=== PATIENT | female | born 1965 | race Caucasian/White ===

== ENCOUNTER → 2019-10-28 19:03 | Outpatient (CLI) | payer OTHER, SELFPAY ==
--- NOTE | 2019-10-28 | DI.MRI.S_ITS ---
PROCEDURE: MR CERVICAL SPINE WO CON INDICATIONS: other symptoms and signs of musculoskeletal TECHNIQUE: Noncontrast sagittal T1 spin echo and T2 fast spin echo, sagittal STIR, foraminal oblique sagittal T2 fast spin echo, and axial gradient echo or T2 fast spin echo through the cervical spine. COMPARISON: None. FINDINGS: Image quality: Excellent. Alignment and Curvature: There is loss of normal cervical lordosis. Mild kyphosis at C3-C5 is present. Bone Marrow: Marrow demonstrates normal overall signal. Anterior fusion hardware at C5-C6 is present. Spinal Cord: Visualized spinal cord has normal size and signal. No cerebellar tonsillar herniation. Paraspinous Soft Tissues: No paravertebral masses. Prevertebral soft tissues are normal in thickness. C2-C3: Mild disc desiccation and diffuse disc bulge. No significant canal stenosis. Mild bilateral foraminal stenosis. C3-C4: Mild disc desiccation and diffuse disc bulge. Mild bilateral facet hypertrophy, left greater than right. Congenital canal stenosis. There is overall moderate canal stenosis. There is moderate left and mild right foraminal stenosis. C4-C5: Mild disc desiccation and diffuse disc bulge. Congenital canal stenosis. Moderate left and mild right facet and uncovertebral hypertrophy. Moderate canal stenosis. Severe left and mild right foraminal stenosis. Left C5 nerve root compression. C5-C6: Status post fusion. Mild bilateral facet and uncovertebral hypertrophy. No significant canal stenosis. Moderate bilateral foraminal stenosis. C6-C7: Mild disc height loss and desiccation. Moderate diffuse disc bulge. Moderate facet and uncovertebral hypertrophy bilaterally. Moderate canal stenosis. Severe bilateral foraminal stenosis with bilateral C7 nerve root compression. C7-T1: Normal appearance. IMPRESSION: 1. C5-C6 fusion, with no significant canal stenosis at the fused level. 2. Multilevel degenerative disc and facet disease, as well as uncovertebral hypertrophy. 3. Multilevel canal stenoses, worst at C3-C4, C4-C5 and C6-C7, where there are moderate canal stenoses. 4. Multilevel foraminal stenoses, worst at C4-C5 and C6-C7 where there is associated intraforaminal nerve root compression. Recommend correlation with clinical symptoms to ascertain relevance of these findings. Dictated by: Yesenia Chino M.D. on 10/29/2019 at 8:18 Approved by: Yesenia Chino M.D. on 10/29/2019 at 8:22
--- NOTE | 2019-10-28 | DI.MRI.S_ITS ---
PROCEDURE: MR LUMBAR SPINE WO CON INDICATIONS: other symptoms and signs of musculoskeletal TECHNIQUE: Noncontrast sagittal T1 spin echo and T2 fast echo, coronal T2, sagittal STIR, axial T1 and T2 fast spin echo through the lumbar spine. COMPARISON: None. FINDINGS: Image quality: Excellent. Alignment and Curvature: No plain films are available for comparison, for numbering purposes. Thus, for the purposes of this examination, 5 lumbar type vertebral bodies will be presumed, as denoted on the montage panel. This should be confirmed and correlated with plain films, prior to any lumbar spinal intervention. There is mild diffuse rightward curvature of the lumbar spine. There is mild grade 1 anterolisthesis of L3 on L4 and L4 on L5. Mild grade 1 retrolisthesis of L5 on S1. Bone Marrow: Marrow is of normal overall signal. No acute vertebral body compression fractures. Mild reactive signal within the endplates adjacent to the L3-L4, L4-L5, and L5-S1 intervertebral discs. Spinal Cord: Conus medullaris terminates at the upper L1 level. Visualized cord demonstrates normal signal and size. Paraspinous Soft Tissues: No paravertebral masses. L1-L2: Mild disc desiccation. Mild facet and ligamentum hypertrophy bilaterally. Mild canal stenosis. No foraminal stenosis. L2-L3: Mild facet and ligamentum flavum hypertrophy. No significant canal, nor foraminal stenosis. L3-L4: Mild disc height loss and desiccation. Mild diffuse disc bulge. Moderate facet and ligamentum flavum hypertrophy bilaterally. Periarticular cyst adjacent to the bilateral facet joints are present, measuring 6 mm on the right and 9 mm on the left, protruding into the posterior epidural space, and contributing significantly to canal stenosis at this level. There is severe canal stenosis. There is mild bilateral foraminal stenosis. L4-L5: Moderate disc height loss and desiccation. Mild diffuse disc bulge with superimposed broad-based central protrusion. Mild facet and ligamentum hypertrophy bilaterally. Mild canal stenosis. Mild bilateral foraminal stenosis. L5-S1: Moderate disc height loss and desiccation. Mild diffuse disc bulge with small superimposed broad-based right posterior lateral protrusion. Mild facet hypertrophy bilaterally. Mild canal stenosis. Moderate right and mild left foraminal stenosis. IMPRESSION: 1. Multilevel degenerative disc and facet disease, as well as ligamentum flavum hypertrophy and epidural lipomatosis. 2. Multilevel canal stenoses, worst at L3-L4 where there is severe canal stenosis, which is exacerbated by periarticular cysts arising from the bilateral facet joints. 3. Multilevel foraminal stenoses, worse at L5-S1 on the right where there is moderate foraminal stenosis. 4. 5 lumbar type vertebral bodies were presumed for the current report. Plain films of the lumbar spine are recommended for confirmation, prior to any lumbar spinal intervention. Dictated by: Yesenia Chino M.D. on 10/29/2019 at 8:22 Approved by: Yesenia Chino M.D. on 10/29/2019 at 8:26
== END ==
PROVIDERS: Referring Provider Physician Assistant; Visit Provider Physician Assistant
DX: R29.898 Other symptoms and signs involving the musculoskeletal system (principal); M50.31 Other cervical disc degeneration, high cervical region; M48.02 Spinal stenosis, cervical region; M51.36 Other intervertebral disc degeneration, lumbar region; M51.37 Other intervertebral disc degeneration, lumbosacral region; M48.061 Spinal stenosis, lumbar region without neurogenic claudication; M48.07 Spinal stenosis, lumbosacral region; E88.2 Lipomatosis, not elsewhere classified; Z98.1 Arthrodesis status
CPT/HCPCS: 72141; 72148

== ENCOUNTER → 2019-11-07 14:49 | Outpatient (CLI) | payer OTHER, SELFPAY ==
[2019-11-07 15:48] LABS: Add Manual Diff / Slide Review NO; Basophils Absolute Auto 0 /uL (0-100); Basophils Percent Auto 0.7 % (0-2); Eosinophils Absolute Auto 300 /uL (0-450); Hematocrit 42.7 % (36-46); Hemoglobin 14.5 g/dL (12.0-16.0); Lymphocytes Absolute Auto 1300 /uL (1100-4500); Lymphocytes Percent Auto 22.6 % (25-40); Mean Corpuscular HGB Conc 33.8 % (30-36); Mean Corpuscular Hemoglobin 31.2 PG (26-34); Mean Corpuscular Volume 92.1 fL (80-100); Monocytes Absolute Auto 300 /uL (0-900); Monocytes Percent Auto 5.7 % (3-14); Neutrophils Absolute Auto 3900 /uL (1500-7000); Platelet Count 134 X10^3/uL (150-400); Red Blood Cell Count 4.64 X10^6/uL (4.0-5.2); Red Cell Distribution Width 13.4 % (11.6-14.8); White Blood Cell Count 5.8 X10^3/uL (4.5-11.0)
== END ==
PROVIDERS: Referring Provider Orthopaedic Surgery; Visit Provider Orthopaedic Surgery
DX: Z01.812 Encounter for preprocedural laboratory examination (principal)
CPT/HCPCS: 36415; 85025

== ENCOUNTER 2019-11-11 07:11 | Day surgery (SDC) | payer OTHER, SELFPAY ==
[2019-11-10 09:41] VITALS: BMI 22.8
[2019-11-11] VITALS (8 sets, daily range): BP systolic 99–129; BP diastolic 49–69; PULSE 67–97; RESP 9–18; TEMP 36.3–36.8; O2SAT 98–100; BMI 22.8
--- NOTE | 2019-11-11 | DI.RAD.S_ITS ---
PROCEDURE: XR LUMBAR SPINE 2-3V INDICATIONS: L3-4 LAMINECTOMY TECHNIQUE: 2 intraoperative fluoroscopic views of the lumbar spine were acquired. COMPARISON: None. FINDINGS: Bones: Intraoperative fluoroscopic images demonstrate intervention at the lower lumbar spine. IMPRESSION: Intraoperative fluoroscopic images of L3-L4 laminectomy. Dictated by: Yulisa Ybarra M.D. on 11/14/2019 at 16:02 Approved by: Yulisa Ybarra M.D. on 11/14/2019 at 16:02
--- NOTE | 2019-11-11 07:31 | PM.PREOP ---
Pre-operative Note Interval Note History & Physical reviewed/Exam performed by Physician: Yes Changes to H&P: No
[2019-11-11] MEDS: ACETAMINOPHEN 325 MG TABLET 975 MG PO (07:39)
[2019-11-11] MEDS: LACTATED RINGERS 1,000 ML 42 ML IV ×2 (07:42→09:32)
--- NOTE | 2019-11-11 07:45 | SUR.PREOP ---
Pt reports has bilateral LE numbness and tingling that is chronic. Pt also has numbness and tingling in LUE that is position dependent. Pt reports also has weakness in LLE.
[2019-11-11] MEDS: CEFAZOLIN 2 GM/100 ML FROZ.PIGGY IV (08:10)
--- NOTE | 2019-11-11 08:35 | SUR.OPER ---
Prone on spine table, head in foam head support, padded chest and pelvic supports, gel pad at knees, lower legs supported by pillows; nipples, genitalia and toes free of pressure, arms secured on foam padded arm boards at <90 degrees abduction. Tape over blanket at thigh secured to table.
[2019-11-11] MEDS: THROMBIN (RECOMBINANT) 5,000 UNIT VIAL 5000 UNIT TOP (08:44)
[2019-11-11] MEDS: BUPIVACAINE 0.25% (PF) 8 ML, fentaNYL 100 MCG INJ (08:44)
[2019-11-11] MEDS: SODIUM CHLORIDE 0.9% 1,000 ML, GENTAMICIN 80 MG IRR (08:45)
--- NOTE | 2019-11-11 09:58 | PM.OP.1 ---
Operative Date/Time/Diagnoses Date of procedure: 11/11/19 Time of procedure: 09:58 Pre-op diagnosis: Lumbar facet cyst with spinal stenosis Post-op diagnosis: same Procedure & Clinicians Procedure: L3-4 laminectomy with facet cyst excision Same procedure as scheduled: Yes Indications: [age] year old female with intractable pain and weakness from a large facet cyst causing severe spinal stenosis. They had failed conservative management and requested operative intervention. Risks and benefits of surgery were discussed and appropriate consents were obtained. Surgeon: Mack Ann Threading Machine Tender: Kianna Menjivar Anesthesia Type: General Operative Notes Findings: None Closure Type: primary Specimen(s): none sent Estimated Blood Loss (mL): 10 Procedure in detail: Patient was brought to the operating room and intubated on the table. A time-out was performed. There were rolled over the well-padded prone position on the Blue table. The back was prepped and draped in standard sterile fashion. Preoperative antibiotics were given. Using fluoroscopy, a 3 cm incision was made to the left of the midline at the L3-4 level. We used Bovie to come down to and split the fascia. We then used the NuLil Monkey Butt MaXcess dilators with fluoroscopy and then opened our retractors. The soft tissue was cleared off with Bovie, a marker was placed, an x-ray was taken to confirm positioning. We then brought in the microscope. A combination of high-speed bur and Kerrison were used to perform a left-sided laminectomy. We had used the bur to go across the midline. The ligamentum was gradually peeled back. We came down expose the dura and saw the massive left-sided facet cyst. This was isolated as best we could off the dura and then a Kerrison rongeur was used to remove the facet cyst. We worked from below the lamina to well up along the side of the lamina until we finally got past it to normal tissue. The cyst was densely adherent to the dura throughout this and we kept peeling it back. There was still a thin layer adhered to the dura when this was done but we had removed all the way down to the bone on the facet as well as above and below. We then reached across and gently depress the dura and decompress the ligamentous thickening on the opposite side. At the end of this we could sweep a ball probe cephalad, caudally, across the midline, and the neural foramen and everything had been widely decompressed and was now free. The wound was then copiously irrigated. An epidural catheter was filled with 100 mcg of fentanyl and 8 mL of 0.25% Marcaine. The dura was carefully depressed under the laminotomy site and the catheter was advanced 6 cm cephalad. The retractor was removed and the fascia was closed. The epidural catheter was then injected without resistance and removed. Vancomycin powder was placed in the wound. Superficial and skin were closed. Sterile dressing was placed. The patient was then rolled over, transferred to the stretcher, and brought to recovery room without complications. Complications: none Post-operative Condition: stable Disposition: PACU Plan for aftercare: Outpatient. Limited bending twisting lifting for 2 weeks and then may start activity as tolerated.
--- NOTE | 2019-11-11 12:00 | SUR.PHASEII ---
Late entry 11:15: patient up to bathroom to void with assistance from . Denies nausea at this time and denies pain. All belongings returned to patient and family. Home with RX for tramadol and oxycodone.
== END 2019-11-11 11:20 | disposition home or self-care (01) ==
PROVIDERS: PCP General Practice; Referring Provider Orthopaedic Surgery; Visit Provider Orthopaedic Surgery
PROC: (CPT 63267; principal; 2019-11-11 07:45)
DX: G96.19 Other disorders of meninges, not elsewhere classified (principal); M48.062 Spinal stenosis, lumbar region with neurogenic claudication; S16.1XXA Strain of muscle, fascia and tendon at neck level, initial encounter; S39.012A Strain of muscle, fascia and tendon of lower back, initial encounter; J45.909 Unspecified asthma, uncomplicated
CPT/HCPCS: 63267; 72100; 76000; J0330; J0690; J1100; J2250; J2405; J2704; J3010

== ENCOUNTER → 2020-01-23 09:38 | Outpatient (CLI) | payer OTHER, SELFPAY ==
[2020-01-23 22:44] LABS: COVID19 Sendout Not Detected (Not Detect)
== END ==
PROVIDERS: PCP General Practice; Visit Provider Registered Nurse
DX: Z11.59 Encounter for screening for other viral diseases (principal)
CPT/HCPCS: 87635

== ENCOUNTER 2020-01-27 09:28 | Inpatient (IN) | payer OTHER, SELFPAY ==
[2020-01-22 10:58] VITALS: BMI 22.8
[2020-01-27] VITALS (14 sets, daily range): BP systolic 105–127; BP diastolic 44–76; PULSE 54–89; RESP 6–20; TEMP 36.1–36.9; O2SAT 96–100; BMI 22.8
--- NOTE | 2020-01-27 | DI.RAD.S_ITS ---
PROCEDURE: XR CERVICAL SPINE 2V OR 3V INDICATIONS: C4-5. C6-7 ACDF TECHNIQUE: 2 view(s) of the cervical spine were acquired. COMPARISON: [facility], MR, MR CERVICAL SPINE WO CON, 10/28/2019, 19:23. FINDINGS: The first image, lateral view, shows an interbody staple fixation device with what appears to be a disc space prosthesis immediately dorsal, at the C4-C5 level. At C5-C6 on the lateral view upper and lower disc prosthesis metallic devices have been placed for interbody articulation. At C6-C7 anterior fixation devices have been placed, likely temporarily. The subsequent frontal view allows only faint visualization of the C4-C5 level and at the C5-C6 level interbody disc prosthesis is present. At C6-C7 interbody disc prosthesis also is present. Normal alignment appears present, limited visualization. Bones: Soft tissues: No prevertebral soft tissue swelling. IMPRESSION: The 2 views show a sequence in the intraoperative placement of interbody disc prosthesis devices at C5-C6 and C6-C7. On the frontal projection there is relatively poor visualization of the C4-C5 level due to overlap of the mandible in that area. Limited intraoperative study. Dictated by: Braxton Cao M.D. on 01/27/2020 at 12:53 Approved by: Braxton Cao M.D. on 01/27/2020 at 12:59
[2020-01-27] MEDS: LACTATED RINGERS 1,000 ML 42 ML IV ×2 (09:35→12:49)
--- NOTE | 2020-01-27 09:47 | PM.HP.1 ---
History of Present Illness History of Present Illness Date Patient Seen: 01/27/20 Time Patient Seen: 09:47 Chief complaint: Cervical Fusion Anterior Narrative: 54-year-old female with cervical stenosis and myelopathy. Pain in the neck mostly over the left shoulder down the biceps to the thumb and index. Numbness and tingling in this distribution. She is also having progressive weakness in the arm. Symptoms have been progressing over the years. She has a remote history of a C5-6 ACDF. She had a L3-4 laminectomy on 11/11/2019 which helped with the leg symptoms but she still has balance and wobbliness issues. She has been through physical therapy. Patient History Medical History Arthritis (Acute) Asthma (Acute) Surgical History History of bilateral carpal tunnel release (Acute) History of section (Acute) Hx of cervical spinal arthrodesis (Acute) Hx of laminectomy (Acute 11/11/19) Family & Social History Social History: household members spouse Tobacco & Substance use: Smoking Status Never smoker alcohol intake current alcohol intake frequency holiday/special occasion Substance Use Type does not use Meds Home Medications and Allergies Home Medications Medication Instructions Recorded Confirmed Type clonazepam [Klonopin] 1 mg PO BEDTIME 11/10/19 01/22/20 History topiramate [Topamax] 100 mg PO BID 11/10/19 01/22/20 History cyclobenzaprine 10 mg PO BEDTIME PRN 11/11/19 01/22/20 History methylphenidate HCl [Concerta] 72 mg PO QAM 11/11/19 01/22/20 History naproxen 500 mg PO BID 11/11/19 01/22/20 History oxycodone-acetaminophen [Percocet] 1 tab PO Q4H PRN #10 tab 11/11/19 01/22/20 Rx tramadol 50 mg PO Q4H PRN #10 tab 11/11/19 01/22/20 Rx Allergies Allergy/AdvReac Type Severity Reaction Status Date / Time latex Allergy Intermediate Rash Verified 01/27/20 09:53 shellfish derived Allergy Mild Verified 01/27/20 09:53 Review of Systems Constitutional Constitutional: Denies chills and Denies fever(s) Respiratory Respiratory: Denies cough Exam Const Orientation: alert and oriented x3 Resp Auscultation: clear to auscultation bilaterally Cardio Rate: regular rate Rhythm: regular rhythm Back/Spine/Pelvis Other: Was the cervical incision. 5/5 motor both upper extremities. Decreased sensation along the left C6 distribution. Positive Bautista's on left. Objective Imaging Cervical MRI: My impression: From 10/28/2019 shows the C3-4 mild left foraminal narrowing. C4-5 moderate central stenosis with cord deformity. C5-6 previous ACDF. C6-7 mild central and moderate bilateral foraminal narrowing. C7-T1 open Assessment & Plan Assessment & Plan narrative: Cervical stenosis with myelopathy and radiculopathy. She has failed conservative management. Our plan is for C4-5 ACDF and C6-7 ATR. Risks and benefits again were discussed. COVID-19 COVID-19 status: Negative Result date/Date tested (Pos, Neg/Pending): 01/23/20
[2020-01-27] MEDS: CEFAZOLIN 2 GM/100 ML FROZ.PIGGY IV ×2 (10:17→17:55)
[2020-01-27] MEDS: ACETAMINOPHEN IV 1,000 MG/100 ML VIAL 400 MG IV (10:40)
--- NOTE | 2020-01-27 10:59 | SUR.OPER ---
Supine on padded OR bed, head on pillow, towel between shoulder blades, arm padded and tucked at side, legs uncrossed, safety belt at thigh, tape over blanket over lower legs .
[2020-01-27] MEDS: VANCOMYCIN 1,000 MG VIAL 1000 MG TOP (11:09)
[2020-01-27] MEDS: BUPIVACAINE 0.25% W/ EPI 30 ML VIAL INJ (11:10)
[2020-01-27] MEDS: THROMBIN (RECOMBINANT) 5,000 UNIT VIAL 5000 UNIT TOP (11:11)
[2020-01-27] MEDS: SODIUM CHLORIDE 0.9% 1,000 ML, GENTAMICIN 80 MG IRR (11:11)
--- NOTE | 2020-01-27 12:18 | PM.OP.1 ---
Operative Date/Time/Diagnoses Date of procedure: 01/27/20 Time of procedure: 12:18 Pre-op diagnosis: Cervical stenosis with myelopathy Post-op diagnosis: same Procedure & Clinicians Procedure: C4-5 anterior cervical diskectomy and fusion with cage C6-7 anterior cervical diskectomy and artificial disc replacement Iliac crest bone graft Use of microscope Placement of epidural catheter Same procedure as scheduled: Yes Indications: [age] year old female with intractable pain from cervical stenosis. They had failed conservative management and requested operative intervention. Risks and benefits of surgery were discussed and appropriate consents were obtained. Surgeon: Mack Ann Cannoneer: Gabriel Bowser Anesthesia Type: General Operative Notes Findings: None Closure Type: primary Specimen(s): none sent Prosthetic devices, grafts, tissues, transplants, or devices: Da MICHELLE-C 14x15.5x5 anatomic cage at C45 Da Mobi-C [id number] at C67 Applied: catheter Estimated Blood Loss (mL): 5 Procedure in detail: Patient was brought to the operating room and intubated on the table. A time-out was performed. Preoperative antibiotics were given. The neck was prepped and draped in the standard sterile fashion. Using a skin fold, we made a 3 cm oblique incision using her previous right-sided incision. We used Bovie to go through the platysma and then did a standard anterolateral blunt dissection down through the scar to the precervical fascia. Fascia was nicked and elevated up. A marker was placed and x-ray was taken for localization. We then subperiosteally elevated up the longus colli muscles. Self-retaining retractors were placed. [place] pins were placed under x-ray guidance at C4-5. We then brought in the microscope. A scalpel used to perform an annulotomy. We then used a combination of pituitaries and curettes and Kerrison to perform a complete anterior diskectomy at C4-5. We took down the PLL and used Kerrison to remove any posterior disc material and osteophytes. At the end we could from the nerve hook cephalad caudally and out the foramen and everything was opened. We distracted open with the parallel director personal. We trialed our cage. A small stab incision was made over the right anterior iliac crest. Useful at Night needle was advanced into the pelvis and 1 mm of bone marrow was aspirated from the iliac crest. This was combined with Primagen bone graft and placed in our cage. The 14 x 15.5 x 5 mm cage was then impacted into position under fluoroscopic guidance. We released our traction. We then placed our plates. X-rays were taken to confirm positioning. We then removed our traction and moved down to the C6-7 level. Again a scalpel used for an annulotomy. Pituitary, Kerrisons, curettes were used to perform a complete diskectomy at C6-7. We took down the PLL and the remove the posterior osteophytes and disc material. In the end we could run the nerve hook centrally and out the neural foramen and everything was open. We then used the horseshoes for sizing. We then used the trials. We then inserted a 15 x 15 x 5 mm size Mobi-C artificial disc replacement under fluoroscopic guidance for positioning. The traction was released and x-ray was checked again. The self-retaining retractors and [place] pins were removed and final x-rays taken. The wound was irrigated. There was no bleeding. The carotid was beating nicely. The platysma was closed. The superficial was closed. The skin was closed. A sterile dressing was placed. They were then extubated and brought to recovery room with no complications. Complications: none Post-operative Condition: stable Disposition: PACU Plan for aftercare: Inpatient overnight. Plan to discharge tomorrow if doing well.
[2020-01-27] MEDS: ONDANSETRON 4 MG/2 ML INJ IV (12:43)
[2020-01-27] MEDS: fentaNYL 100 MCG/2 ML INJ IV ×2 (12:45→12:54)
--- NOTE | 2020-01-27 13:14 | SUR.PHASEI ---
Report called to Crystal
--- NOTE | 2020-01-27 13:36 | SUR.PHASEI ---
patient transferred to the floor. Suitcase and belongings bag in room. Report given to Crystal. VS stable. Scant bloody drainage to neck dressing. Patient moving all extremities independently. IV saline locked.
[2020-01-27] MEDS: LACTATED RINGERS 1,000 ML 125 ML IV ×2 (13:50→22:14)
--- NOTE | 2020-01-27 16:04 | OT.IP.EVAL ---
Current Diagnoses Spinal stenosis, cervical region (01/27/20) Spinal stenosis, lumbar region with neurogenic claudication (01/27/20) Arthrodesis status (01/27/20) Surgery Performed Operation Date: 01/27/20 10:45 Actual Procedures p C45 anterior cervical discectomy & fusion w/bone graft, C67 artificial disc replacement - Mack Ann MD Past Medical History (Last Reviewed 01/27/20 @ 09:49 by Mack Ann MD) Arthritis (Acute) Asthma (Acute) Surgical History (Last Reviewed 01/27/20 @ 09:49 by Mack Ann MD) History of bilateral carpal tunnel release (Acute) History of section (Acute) Hx of cervical spinal arthrodesis (Acute) Hx of laminectomy (Acute 11/11/19) Occupational Therapy Inpatient Evaluation/Re-Eval M1 PT/OT-IP Prior Functional Status Start: 01/27/20 16:32 Freq: NEEDED Status: Active Protocol: Document 01/27/20 15:31 [facility] (Rec: 01/27/20 16:50 [facility] [id number]) Medical Review Prior Functional Status Medical History Reviewed Yes Communication Independent Mobility and Gait Independent with no devices. Activities of Daily Living and IADL's Pt states due to decreased manager payroll strength not able to cook and having more difficulty with IADl needs. Prior Functional Level (Other details) Pt's and daughter to be at home to assist as needed . Social History Household Members spouse Living Arrangements House Number of Floors (Floors) Two Floors Number of Stairs To Enter/Railing? Pt has 2 steps to enter the house with no rails and 7 steps, landing and another 7 steps with right rail ascending for both ways up. Home Environment Standard Height Toilet,Walk in Shower Additional Social History Comment Pt us a Nurse Practitioner. M2 OT-IP Current Condition Start: 01/27/20 16:32 Freq: Status: Active Protocol: Document 01/27/20 15:31 [facility] (Rec: 01/27/20 16:50 [facility] [id number]) Occupational Therapy Current Condition Current Condition Evaluation Date 01/27/20 Treatment Diagnosis Cervical stenosis s/p C4-5, C6-7 anterior cervical diskectomy Diagnosis Onset Date 01/27/20 Post Operative Precautions Cervical Spine Precautions Soft Collar for Comfort,No Heavy Lifting,Log Roll Weight Bearing Status Weight Bearing Status Weight Bear as Tolerated M3 OT- IP Subjective and Pain Start: 01/27/20 16:32 Freq: Status: Active Protocol: Document 01/27/20 15:31 [facility] (Rec: 01/27/20 16:50 [facility] [id number]) OT- Subjective Occupational Therapy Visit Type Type Initial Evaluation Visit Start Time 15:31 Visit Stop Time 16:04 Total Visit Minutes 33 Occupational Therapy Visit Comments Patient Comments Pt agreeing to get up for OT eval. Pt present at the end of the session. Patient/Caregiver Goals TO go home. OT Pain Assessment Pain When Pain Assessed At Rest Pain Present Pain Present Denied Pain M4 OT- IP ADL's Start: 01/27/20 16:32 Freq: Status: Active Protocol: Document 01/27/20 15:31 [facility] (Rec: 01/27/20 16:50 [facility] [id number]) OT [id number] Comments OT Self-Feeding Comments Not at meal time, educated pt on cervical information for swallowing such eating softer foods, sit upright, and eat cold foods. Pt able to state good understanding. OT ADL-Grooming General Evaluation Grooming Ability Standby Assistance Areas Needing Assistance Retrieving/Set-up of Grooming Items Comments OT Grooming Comments VC to lean to spit or spit into a cup. OT ADL-Oral Care General Eval Oral Care Ability Independent OT ADL-Dressing General Eval Lower Body Dressing Ability Minimal Assistance Comments OT Dressing Comments VIRY to help moise catheter into her brief, CGA while standing to pull up brief over her hips. Pt just needing initial vc and able to moise/ doff soft collar on her own. OT ADL-Toileting General Evaluation Toileting Ability Total Assistance Comments OT Toileting Comments Giang in place. OT ADL-Bathing Comments OT Bathing Comments NOt at this time, to attempt tomorrow. M5 OT- IP IADL's Start: 01/27/20 16:32 Freq: Status: Active Protocol: Document 01/27/20 15:31 [facility] (Rec: 01/27/20 16:50 [facility] [id number]) OT-Instrumental Activities of Daily Living Home Safety Awareness Awareness of Need for Assistance at Home Good Awareness Ability to Problem Solve Emergency Able to Problem Solve Situations Medication Management Medication Management No Deficits Identified Money Management Money Management No Deficits Identified Meal Preparation Meal Preparation Caregiver Provides Assist Video Photographer Video Photographer Caregiver Provides Assist Driving Driving Caregiver Provides Assist M6 OT- IP Functional Cognition Start: 01/27/20 16:32 Freq: Status: Active Protocol: Document 01/27/20 15:31 [facility] (Rec: 01/27/20 16:50 [facility] [id number]) Cognitive Factors Limiting Selfcare Function Cognitive Ability Level of Alertness Alert Patient Orientation Name,Place,Situation Attention Span Ability Capable of Focused Attention, Capable of Sustained Attention Ability to Follow Commands Able to Follow One Step Commands Safety Awareness Decreased Ability to Apply Precautions Cognitive Comments Cognitive Assessment Comments Pt able to follow commands, however a little impulsive. VC not to twist her neck and turn her whole body instead. OT- Vision and Hearing OT- Hearing Assessment OT- Hearing Assessment WFL OT- Vision Assessment Visual Acuity Glasses All The Time M7 OT- IP Mobility and Balance Start: 01/27/20 16:32 Freq: Status: Active Protocol: Document 01/27/20 15:31 [facility] (Rec: 01/27/20 16:50 [facility] [id number]) OT- Bed Mobility Assessment Rolling Type of Rolling Roll to Left Level of Assistance Standby Assistance Supine to Sit Supine to Sit Assist Standby Assistance OT-Transfer Assessment Sit to and From Stand Sit to and from Stand Contact Guard Assistance Transfers Transfer Ability Contact Guard Assistance Technique Transfer Destination Bed,Chair Transfer Technique Stand Step Pivot Devices Transfer Assistive Devices Gait Belt Comments Mobility Comments Pt needing reminders for log rolling as has a tendency to just sit up into long sitting. Information given regarding log rolling to help remind pt. CGA to stand and close SBA to CGA while walking to the sink. OT- Balance Assessment Sitting Balance and Reactions Static Sitting Balance Ability Normal Dynamic Sitting Balance Ability Normal Standing Balance and Reactions Static Standing Balance Ability Good Dynamic Standing Balance Ability Fair M8 OT- IP Objective Assessments Start: 01/27/20 16:32 Freq: Status: Active Protocol: Document 01/27/20 15:31 [facility] (Rec: 01/27/20 16:50 [facility] [id number]) OT Gross Range of Motion Upper Extremity Range of Motion Assessment Within Functional Limits OT Strength Upper Extremity Strength Assessment Bilaterally Impaired Comments Strength Comments right manager payroll stronger than left manager payroll Left fingers pinch stronger than right side Pt dropped paper which she was holding in her hand. To go over hand exercises for pt tomorrow. OT-Muscle Tone Assessment Muscle Tone WNL Yes OT Sensation Assessment Comments Summary Comments WFL for light touch. M9 OT- IP Assessment and Plan Start: 01/27/20 16:32 Freq: Status: Active Protocol: Document 01/27/20 15:31 [facility] (Rec: 01/27/20 16:50 [facility] [id number]) OT Summary Assessment and Plan Potential Rehabilitation Potential Excellent Analytic Complexity at Evaluation Low Summary OT Impairments Pain,Strength,Functional Mobility,Dressing,Toileting, Bathing,Toilet Transfers, Shower Transfers,Activity Tolerance Progress Towards Goals Progressing Toward Goals Assessment Summary Pt low complexity and main barriers are remember and being able to incorporate cervical precautions for mobility and ADl needs, In addition for pt to remember to slow down. Pt has a supportive family and looking to go home when medically ready. Pt very anxious to get back to doing Yoga and emphasized to her to be sure to clear it with the surgeon as now she may have to modify some of her movements. Goals Grooming Goal Independent Dressing Goal Independent Toileting Goal Independent Bathing Goal Independent Toilet Transfer Goal Independent Shower Transfer Goal Independent Patient/Caregiver Education Goal Demonstrate Post-Op Precautions Days to Meet Goals 2 Frequency of Treatment Frequency Of Treatment Once a Day Treatment Plan OT Treatment Plan ADL Training,Functional Mobility,Patient/Family Education,Discharge Planning Other Treatment Recommendations and Next Shower Treatment Focus Discharge Recommendations OT Discharge Recommendations Home with Assistance Transportation Needs at Discharge Private Vehicle
--- NOTE | 2020-01-27 17:01 | PT.IIE ---
Current Diagnoses Spinal stenosis, cervical region (01/27/20) Spinal stenosis, lumbar region with neurogenic claudication (01/27/20) Arthrodesis status (01/27/20) Surgery Performed Operation Date: 01/27/20 10:45 Actual Procedures p C45 anterior cervical discectomy & fusion w/bone graft, C67 artificial disc replacement - Mack Ann MD Surgical History (Last Reviewed 01/27/20 @ 09:49 by Mack Ann MD) History of bilateral carpal tunnel release (Acute) History of section (Acute) Hx of cervical spinal arthrodesis (Acute) Hx of laminectomy (Acute 11/11/19) Medical History (Last Reviewed 01/27/20 @ 09:49 by Mack Ann MD) Arthritis (Acute) Asthma (Acute) Physical Therapy Inpatient Evaluation/Re-Eval M1 PT/OT-IP Prior Functional Status Start: 01/27/20 15:49 Freq: NEEDED Status: Active Protocol: Document 01/27/20 16:31 [facility] (Rec: 01/27/20 17:01 AW [id number]) Medical Review Prior Functional Status Medical History Reviewed Yes Communication WNL Mobility and Gait Pt is an independent ambulatory and is active with yoga and swimming. She states numbness in her feet associated with weightbearing limits her ambulation tolerance. Social History Household Members spouse,children Living Arrangements House Number of Floors (Floors) Two Floors Number of Stairs To Enter/Railing? 2 BASSAM without railing. 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 M1 PT/OT-IP Prior Functional Status Start: 01/27/20 16:32 Freq: NEEDED Status: Active Protocol: Document 01/27/20 15:31 [facility] (Rec: 01/27/20 16:50 [facility] [id number]) Medical Review Prior Functional Status Medical History Reviewed Yes Communication Independent Mobility and Gait Independent with no devices. 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 Prior Functional Level (Other details) Pt's and daughter to be at home to assist as needed . Social History Household Members spouse Living Arrangements House Number of Floors (Floors) Two Floors Number of Stairs To Enter/Railing? Pt has 2 steps to enter the house with no rails and 7 steps, landing and another 7 steps with right rail ascending for both ways up. Home Environment Standard Height Toilet,Walk in Shower Additional Social History Comment Pt us a Nurse Practioner. M2 PT-IP Current Condition Start: 01/27/20 15:49 Freq: NEEDED Status: Active Protocol: Document 01/27/20 16:31 [facility] (Rec: 01/27/20 17:01 AW [id number]) Physical Therapy Current Condition Current Condition Evaluation Date 01/27/20 Treatment Diagnosis s/p C4-5 ACDF, C6-7 disc replacement; difficulty in walking Onset Date 01/27/20 Precautions Cervical Spine Precautions Soft Collar for Comfort,No Heavy Lifting,Log Roll Weight Bearing Status Weight Bearing Status Full Weight Bearing M3 PT-IP Subjective Start: 01/27/20 15:49 Freq: NEEDED Status: Active Protocol: Document 01/27/20 16:31 [facility] (Rec: 01/27/20 17:01 AW [id number]) Subjective Physical Therapy Visit Type Type Initial Evaluation Visit Start Time 15:57 Visit Stop Time 16:21 Total Visit Minutes 24 Notes Pt has remote history of C5-6 ACDF and underwent L3-4 laminectomy in October of this year Physical Therapy Visit Comments Patient Comments Pt finishing up with OT, willing to work with PT Patient Goals Pt would like to be able to play soccer again. Therapy Pain Assessment Pain When Pain Assessed During Mobility Pain Present Pain Present Pain Reported Location neck Intensity 5 Scale Used Numeric (1 - 10) Pain Management Techniques Re-positioning,Timing of Activity with Medications M4 PT-IP Mobility and Gait Start: 01/27/20 15:49 Freq: NEEDED Status: Active Protocol: Document 01/27/20 16:31 [facility] (Rec: 01/27/20 17:01 AW [id number]) PT-Bed Mobility Assessment Rolling Type of Rolling Log Rolling,Roll to Left Level of Assist Contact Guard Assistance Sit to Supine Sit to Supine Contact Guard Assistance Scooting Scooting to Edge of Bed Standby Assistance PT-Transfer Assessment Sit to and From Stand Sit to and from Stand Standby Assistance,Use of Upper Extremities Equipment Transfer Assistive Device Gait Belt Orthotic/Prosthetic Devices or Brace: No Transfers Transfer Destination Bed,Chair Transfer Technique pt ambulated without AD Transfer Ability Level of Assist Standby Assistance Comments Mobility Comments Pt was standing at the sink with OT upon PT arrival. She transferred to the chair SBA and then completed sit to stand SBA. She walked in the halls for gait assessment before requesting return to bed. Pt entered the bed on the left side and completed sit to sidelying and log roll CGA and cues for sequencing. Pt was positioned in the bed with bed alarm activated for safety, call light and all needs within reach. Gait Assessment Gait Gait Assistance Required: Standby Assistance Distance (Feet) 220 Able to Maintain Weight Bearing Status Yes During Gait Assistive Devices Assistive Device Gait Belt Orthotic/Prosthetic Devices or Brace: No Gait Deviations General Gait Pattern Antalgic,Decreased Stride Length,Decreased Feet Clearance,Narrow Based Gait Factors Limiting Gait Function Factors Limiting Gait Function Decreased Activity Tolerance, Decreased Sensation,Decreased Strength,Pain Comments Gait Comments Pt ambulated 220 feet in the halls with close SBA due to occasional lateral LOB from which she was able to recover without therapist assist. Pt was able to compensate for lower visual field obstruction due to soft collar. Pt reported increased numbness to bilateral feet with increased distance. Stair Climbing Assessment Evaluation Level of Assist On Stairs Standby Assistance Devices Stair Climbing Assistive Devices Right Railing Technique/Endurance Stair Climbing Direction Ascend and Descend Stair Climbing Technique Step Over Step Number of Steps Climbed 3 Query Text: Stair Climbing Set # Repetitions (reps) 2 Comments Stair Climbing Comments Pt was educated to take care in stepping down due to obstruction of lower visual field due to soft collar. She was able to complete stair navigation safely. PT-Balance Assessment Sitting Balance and Reactions Static Sitting Balance Ability Normal Dynamic Sitting Balance Ability Normal Standing Balance and Reactions Static Standing Balance Ability Good Dynamic Standing Balance Ability Good Device Used none M5 PT-IP Objective Assessments Start: 01/27/20 15:49 Freq: NEEDED Status: Active Protocol: Document 01/27/20 16:31 AW (Rec: 01/27/20 17:01 AW [id number]) Orientation Orientation/Cognition Level of Alertness Alert Orientation Name,Day of Week,Place, Situation Language Function Ability No Deficits Noted Safety Awareness Understands Safety Issues Memory Description No Deficits Noted Gross Range of Motion Lower Extremity ROM Assessment Within Functional Limits Strength Upper Extremity Strength Assessment Bilaterally Impaired Lower Extremity Strength Assessment Bilaterally Impaired Comments Strength Comments Grossly 4/5 BLE with exam possibly self-limited due to pain Coordination Assessment Gross Coordination Gross Coordination WNL Sensation Assessment Sensation Gross Sensation Right UE Impaired,Left UE Impaired,Right LE Impaired, Left LE Impaired Light Touch Impaired Sensation Description Paresthesia,Numbness Comments Sensation Comments Pt states numbness to bilateral heels, balls of feet , and toes increases with increased weightbearing/ activity. Muscle Tone Muscle Tone WNL Yes M6 PT-IP Treatment Start: 01/27/20 15:49 Freq: NEEDED Status: Active Protocol: Document 01/27/20 16:31 AW (Rec: 01/27/20 17:01 AW [id number]) Physical Therapy Treatment Exercises Exercises Wrist ROM,Hand ROM Education Education Provided Precautions,Weight Bearing Status,Post-Op Packet,Safety Other Treatments Other Treatment Performed Provided education on role of PT, plan of care, compensation for visual field obstruction from soft collar, and donning/ doffing of soft collar using mirror for visual feedback. M7 PT-IP Assessment and Plan Start: 01/27/20 15:49 Freq: NEEDED Status: Active Protocol: Document 01/27/20 16:31 AW (Rec: 01/27/20 17:01 AW [id number]) PT Summary Assessment and Plan Potential Rehabilitation Potential Good Status of Condition at Evaluation Evolving Summary Impairments Pain,Strength,Balance, Sensation,Bed Mobility, Transfers,Gait,Activity Tolerance Assessment Summary Carmela is a 54 yo woman seen for PT evaluation on POD0 following C4-5 ACDF and C6-7 disc replacement. At baseline, pt is active and independent with all mobility though she does endorse difficulty with her balance and numbness of her plantar feet with weightbearing or longer periods of walking. On evaluation, pt required CGA for bed mobility to safely log roll and close SBA for ambulation and stairs without assistive device due to slight impulsiveness and moving too quickly. She will benefit from continued acute PT to reinforce cervical precautions and to further educate on safe ambulation and stair navigation while wearing soft collar. Pt will be safe to discharge home with family support once medically cleared . Goals Bed Mobility Goal Independent Transfer Goal Independent Gait Goal Independent Gait Distance 300 Other Goals - up/down 14 steps with R rail ascending independent Days to Meet Goals 2 Frequency of Treatment Frequency Of Treatment Twice a Day Treatment Plan Physical Therapy Treatment Plan Bed Mobility Training,Transfer Training,Gait Training, Therapeutic Exercise,Balance Retraining,Post Op Education, Discharge Planning,Hot or Cold Pack,Neuromuscular Re-ed Other Recommendations and Next Treatment progress ambulation distance; Focus assess obstacle clearance during gait; reinforce precautions Recommendations To Nursing Amount of Assist Needed Standby Assistance Discharge Recommendations PT Discharge Recommendations Home with Assistance Transportation Needs at Discharge Private Vehicle
[2020-01-27] MEDS: TRAMADOL 50 MG TABLET PO (18:00)
[2020-01-27] MEDS: hydrOXYzine pamoate 25 MG CAPSULE PO (18:01)
[2020-01-27] MEDS: SENNOSIDES 8.6 MG TABLET 17.2 MG PO (20:46)
[2020-01-27] MEDS: DOCUSATE 100 MG CAPSULE PO (20:46)
[2020-01-27] MEDS: TOPIRAMATE 100 MG TABLET PO (20:46)
[2020-01-27] MEDS: NAPROXEN 250 MG TABLET 500 MG PO (20:46)
[2020-01-27] MEDS: clonazePAM 0.5 MG TABLET 1 MG PO (20:46)
--- NOTE | 2020-01-27 22:41 | PC.NURSE ---
pt rates pain 3/10 and tolerable. cervical dressing intact with some shadow drainage on lateral edges. cervical collar on. pt able to swallow ok. pt ambulated in the hallways, SBA. Scd's on. morton patent and intact. pt refused to remove morton and would like it dc'd tomorrow. pt has a hx of urinary retention with anesthesia. call light in reach. bed alarm active.
--- NOTE | 2020-01-28 01:23 | PC.NURSE ---
Patient seen and assessed at 2330. Is alert and oriented. Breath sounds CTA with RA sat of 98%. Does have sore throat but denies dysphagia. HRR. Denies nausea. BT present and is passing flatus. Still has indwelling catheter as refused removal on evening shift wanting to wait until morning as has had problems with post op retention in past. Is able to turn herself in bed. When out of bed is provided SBA for safety as she reports several falls in past 3 months. Dressing to anterior neck is intact with sanguinous drainage at both upper outer corners. Wearing soft collar for comfort. States pain is currently 2/10 and declines pain medication. Bilateral calf SCD's applied. Fall risk score is moderate; bed alarm is activated.
[2020-01-28] MEDS: CEFAZOLIN 2 GM/100 ML FROZ.PIGGY IV (01:58)
[2020-01-28 03:25] VITALS: BP 104/53; PULSE 59; RESP 16; TEMP 36.2; O2SAT 95
--- NOTE | 2020-01-28 07:59 | PM.PNPO.1 ---
Subjective Subjective Date Patient Seen: 01/28/20 Time Patient Seen: 07:59 Interval history: She is doing well. Left arm feels almost back to normal. Pain is much better. Exam Vital Signs (past 8 hours): - 01/28/20 03:25 Temperature 97.2 F L Pulse Rate 59 L Respiratory Rate 16 Blood Pressure 104/53 L Pulse Oximetry 95 Oxygen Delivery Method Room Air Oxygen Flow Rate 0 Const Orientation: alert and oriented x3 Back/Spine/Pelvis Other: Mild dry drainage on dressing. 5/5 motor both upper extremities Assessment & Plan Post-op Postoperative Procedures: Procedures Operation Date: 01/27/20 10:45 Actual Procedures Side Surgeon p C45 anterior cervical discectomy & fusion w/bone graft, C67 artificial disc replacement Mack Ann MD She is doing well. Plan for discharge home.
[2020-01-28 08:00] VITALS: BP 116/67; PULSE 70; RESP 16; TEMP 36.4; O2SAT 100
[2020-01-28] MEDS: NAPROXEN 250 MG TABLET 500 MG PO (08:36)
[2020-01-28] MEDS: TOPIRAMATE 100 MG TABLET PO (08:36)
[2020-01-28] MEDS: DOCUSATE 100 MG CAPSULE PO (08:36)
[2020-01-28] MEDS: TRAMADOL 50 MG TABLET PO (08:36)
--- NOTE | 2020-01-28 08:58 | OT.IP.TRT ---
Current Diagnoses Spinal stenosis, cervical region (01/27/20) Spinal stenosis, lumbar region with neurogenic claudication (01/27/20) Arthrodesis status (01/27/20) Surgery Performed Operation Date: 01/27/20 10:45 Actual Procedures p C45 anterior cervical discectomy & fusion w/bone graft, C67 artificial disc replacement - Mack Ann MD Occupational Therapy Treatment Note M2 OT-IP Current Condition Start: 01/27/20 16:32 Freq: Status: Active Protocol: Document 01/27/20 15:31 [facility] (Rec: 01/27/20 16:50 [facility] [id number]) Occupational Therapy Current Condition Current Condition Evaluation Date 01/27/20 Treatment Diagnosis Cervical stenosis s/p C4-5, C6-7 anterior cervical diskectomy Diagnosis Onset Date 01/27/20 Post Operative Precautions Cervical Spine Precautions Soft Collar for Comfort,No Heavy Lifting,Log Roll Weight Bearing Status Weight Bearing Status Weight Bear as Tolerated M3 OT- IP Subjective and Pain Start: 01/27/20 16:32 Freq: Status: Active Protocol: Document 01/28/20 09:16 [facility] (Rec: 01/28/20 09:21 [facility] [id number]) OT- Subjective Occupational Therapy Visit Type Type Treatment Note Visit Start Time 08:50 Visit Stop Time 08:58 Total Visit Minutes 8 Occupational Therapy Visit Comments Patient Comments Pt in the process of getting dressed. Patient/Caregiver Goals TO go home. OT Pain Assessment Pain When Pain Assessed At Rest Pain Present Pain Present Denied Pain M4 OT- IP ADL's Start: 01/27/20 16:32 Freq: Status: Active Protocol: Document 01/28/20 09:16 [facility] (Rec: 01/28/20 09:21 [facility] [id number]) OT ADL-Dressing General Eval Upper Body Dressing Ability Independent Lower Body Dressing Ability Independent M5 OT- IP IADL's Start: 01/27/20 16:32 Freq: Status: Active Protocol: Document 01/27/20 15:31 [facility] (Rec: 01/27/20 16:50 [facility] [id number]) OT-Instrumental Activities of Daily Living Home Safety Awareness Awareness of Need for Assistance at Home Good Awareness Ability to Problem Solve Emergency Able to Problem Solve Situations Medication Management Medication Management No Deficits Identified Money Management Money Management No Deficits Identified Meal Preparation Meal Preparation Caregiver Provides Assist Summer [employer] Associate [employer] Associate Caregiver Provides Assist Driving Driving Caregiver Provides Assist M6 OT- IP Functional Cognition Start: 01/27/20 16:32 Freq: Status: Active Protocol: Document 01/28/20 09:16 [facility] (Rec: 01/28/20 09:21 [facility] [id number]) Cognitive Factors Limiting Selfcare Function Cognitive Comments Cognitive Assessment Comments Pt at baseline and better safety for cervical precaution needs today. M7 OT- IP Mobility and Balance Start: 01/27/20 16:32 Freq: Status: Active Protocol: Document 01/28/20 09:16 [facility] (Rec: 01/28/20 09:21 [facility] [id number]) OT-Transfer Assessment Sit to and From Stand Sit to and from Stand Independent Transfers Transfer Ability Independent Technique Transfer Destination Chair Comments Mobility Comments Pt independent and able to move safely in the room on her own today. OT- Balance Assessment Sitting Balance and Reactions Static Sitting Balance Ability Normal Dynamic Sitting Balance Ability Normal Standing Balance and Reactions Static Standing Balance Ability Normal Dynamic Standing Balance Ability Good Comments Other Balance Tests/Deviations/Treatment Pt able to do dynamic balance : of getting dressed while standing today. 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 M9 OT- IP Assessment and Plan Start: 01/27/20 16:32 Freq: Status: Active Protocol: Document 01/28/20 09:16 [facility] (Rec: 01/28/20 09:21 [facility] [id number]) OT Summary Assessment and Plan Potential Rehabilitation Potential Excellent Analytic Complexity at Evaluation Low Summary OT Impairments Strength Progress Towards Goals Progressing Toward Goals Assessment Summary Able to give pt theraputty and handout for hand exercises, pt able to states good understanding. Pt looking to go home today and having better awareness today of slowing down and incorporating cervical precautions for all needs. Pt has supportive family at home to assist. Goals OT-Other Goals Pt to be independent with all theraputty exercises to help strengthen her hands. Days to Meet Goals 1 Frequency of Treatment Frequency Of Treatment Once a Day Treatment Plan OT Treatment Plan Discharge Planning Discharge Recommendations OT Discharge Recommendations Home with Assistance Transportation Needs at Discharge Private Vehicle
--- NOTE | 2020-01-28 09:38 | PT.IPTN ---
Current Diagnoses Spinal stenosis, cervical region (01/27/20) Spinal stenosis, lumbar region with neurogenic claudication (01/27/20) Arthrodesis status (01/27/20) Surgery Performed Operation Date: 01/27/20 10:45 Actual Procedures p C45 anterior cervical discectomy & fusion w/bone graft, C67 artificial disc replacement - Mack Ann MD Physical Therapy Treatment Note M2 PT-IP Current Condition Start: 01/27/20 15:49 Freq: NEEDED Status: Discharge Protocol: Document 01/27/20 16:31 [facility] (Rec: 01/27/20 17:01 AW [id number]) Physical Therapy Current Condition Current Condition Evaluation Date 01/27/20 Treatment Diagnosis s/p C4-5 ACDF, C6-7 disc replacement; difficulty in walking Onset Date 01/27/20 Precautions Cervical Spine Precautions Soft Collar for Comfort,No Heavy Lifting,Log Roll Weight Bearing Status Weight Bearing Status Full Weight Bearing M3 PT-IP Subjective Start: 01/27/20 15:49 Freq: NEEDED Status: Discharge Protocol: Document 01/28/20 09:27 [facility] (Rec: 01/28/20 15:18 SP [id number]) Subjective Physical Therapy Visit Type Type Treatment Note Visit Start Time 09:27 Visit Stop Time 09:38 Total Visit Minutes 11 Number of PBX WIRE CHIEF Visits 1 Physical Therapy Visit Comments Patient Comments Pt willing to work with therapy. Patient Goals Pt would like to return home with spouse and children today , and eventually get back to playing soccer again. Therapy Pain Assessment Pain When Pain Assessed During Mobility Pain Present Pain Present Pain Reported Location neck Intensity 3 Scale Used Numeric (1 - 10) Pain Management Techniques Re-positioning,Timing of Activity with Medications M4 PT-IP Mobility and Gait Start: 01/27/20 15:49 Freq: NEEDED Status: Discharge Protocol: Document 01/28/20 09:27 [facility] (Rec: 01/28/20 15:18 SP [id number]) PT-Bed Mobility Assessment Rolling Type of Rolling Log Rolling,Roll to Left Level of Assist Standby Assistance Supine to Sit Supine to Sit Standby Assistance Sit to Supine Sit to Supine Standby Assistance Scooting Scooting to Edge of Bed Standby Assistance PT-Transfer Assessment Sit to and From Stand Sit to and from Stand Standby Assistance,Use of Upper Extremities Equipment Transfer Assistive Device Gait Belt Orthotic/Prosthetic Devices or Brace: No Transfers Transfer Destination Bed Transfer Technique pt ambulated without AD Transfer Ability Level of Assist Standby Assistance Comments Mobility Comments Pt was laying in bed when arrived. Pt had good demonstration of log roll to L , L sidelying to sitting with HOB flat to assimulate home set up, SBA. Sit to stand SBA no AD, gait belt donned. Pt was able to ambulate further distances into hallway to stairs: ascend/descend 15 stairs R HR SBA then walked a couple laps around nursing station approx 424 ft no AD SBA but patient had some wt shift deviations that self recovered, cued for slower pacing for balance safety and energy conservation, improved stable post cues. Pt was sitting up at EOB with call light and all needs in reach before left. PBX WIRE CHIEF recommended continue SBA for now longer distances with pain reports and some slight devations self recovered from during gait with verbal agreement. Pt stated would like to return to outpatient therapy to improve UE ROM and neck and LB strength to return to active classes did prior. Therapy discussed therapy progress with nurse, recommending home with assist and outpatient therapy when medically stable to progress in strength, balance toward prior level of functional mobility. Gait Assessment Gait Gait Assistance Required: Standby Assistance Distance (Feet) 424 Able to Maintain Weight Bearing Status Yes During Gait Assistive Devices Assistive Device Gait Belt Orthotic/Prosthetic Devices or Brace: No Gait Deviations General Gait Pattern Antalgic,Decreased Stride Length,Decreased Feet Clearance,Narrow Based Gait Factors Limiting Gait Function Factors Limiting Gait Function Decreased Activity Tolerance, Decreased Sensation,Decreased Strength,Pain Comments Gait Comments See mobility comments. Stair Climbing Assessment Evaluation Level of Assist On Stairs Standby Assistance Devices Stair Climbing Assistive Devices Right Railing Technique/Endurance Stair Climbing Direction Ascend and Descend Stair Climbing Technique Step Over Step Number of Steps Climbed 3 Stair Climbing Set # Repetitions (reps) 5 Comments Stair Climbing Comments See mobility comments. PT-Balance Assessment Sitting Balance and Reactions Static Sitting Balance Ability Normal Dynamic Sitting Balance Ability Normal Standing Balance and Reactions Static Standing Balance Ability Normal Dynamic Standing Balance Ability Good Device Used none M5 PT-IP Objective Assessments Start: 01/27/20 15:49 Freq: NEEDED Status: Discharge Protocol: Document 01/27/20 16:31 [facility] (Rec: 01/27/20 17:01 AW [id number]) Orientation Orientation/Cognition Level of Alertness Alert Orientation Name,Day of Week,Place, Situation Language Function Ability No Deficits Noted Safety Awareness Understands Safety Issues Memory Description No Deficits Noted Gross Range of Motion Lower Extremity ROM Assessment Within Functional Limits Strength Upper Extremity Strength Assessment Bilaterally Impaired Lower Extremity Strength Assessment Bilaterally Impaired Comments Strength Comments Grossly 4/5 BLE with exam possibly self-limited due to pain Coordination Assessment Gross Coordination Gross Coordination WNL Sensation Assessment Sensation Gross Sensation Right UE Impaired,Left UE Impaired,Right LE Impaired, Left LE Impaired Light Touch Impaired Sensation Description Paresthesia,Numbness Comments Sensation Comments Pt states numbness to bilateral heels, balls of feet , and toes increases with increased weightbearing/ activity. Muscle Tone Muscle Tone WNL Yes M6 PT-IP Treatment Start: 01/27/20 15:49 Freq: NEEDED Status: Discharge Protocol: Document 01/28/20 09:27 [facility] (Rec: 01/28/20 15:18 SP [id number]) Physical Therapy Treatment Education Education Provided Precautions,Safety M7 PT-IP Assessment and Plan Start: 01/27/20 15:49 Freq: NEEDED Status: Discharge Protocol: Document 01/28/20 09:27 SP (Rec: 01/28/20 15:18 SP [id number]) PT Summary Assessment and Plan Potential Rehabilitation Potential Good Status of Condition at Evaluation Evolving Summary Impairments Pain,Strength,Balance, Sensation,Bed Mobility, Transfers,Gait,Activity Tolerance Assessment Summary See mobility comments. Pt will be safe to discharge home with family support once medically cleared, recommending outpatient therapy to improved strength, balance toward prior level of functional mobility, personal goals to return to classes and playing soccer. Goals Bed Mobility Goal Independent Transfer Goal Independent Gait Goal Independent Gait Distance 300 Other Goals - up/down 14 steps with R rail ascending independent Days to Meet Goals 2 Frequency of Treatment Frequency Of Treatment Twice a Day Treatment Plan Physical Therapy Treatment Plan Bed Mobility Training,Transfer Training,Gait Training, Therapeutic Exercise,Balance Retraining,Post Op Education, Discharge Planning,Hot or Cold Pack,Neuromuscular Re-ed Other Recommendations and Next Treatment progress ambulation distance; Focus assess obstacle clearance during gait; reinforce precautions Recommendations To Nursing Amount of Assist Needed Standby Assistance Discharge Recommendations PT Discharge Recommendations Home with Assistance, Outpatient PT Transportation Needs at Discharge Private Vehicle
--- NOTE | 2020-01-28 11:38 | PC.NURSE ---
Assess- Patient is doing well this morning. Given 1 tramadol for pain, she has been getting up to the chair and bathroom independently. Dressing to anterior neck is cdi, with small amount of bleeding on both ends. This will be changed before she goes home. Appetite good. CMS wnl, patient states that she does have a history of some numbness to her l.leg.
[2020-01-28 12:10] VITALS: BP 113/55; PULSE 86; RESP 16; TEMP 36.7; O2SAT 97
--- NOTE | 2020-01-28 14:31 | CM.IDA ---
Initial DCP Assessment Note: Patient is a 54 yo female, resident of [place]. Patient is POD#1 from spinal surgery w/Dr Ann. PCP: Saurabh Phillips Payer: [employer] Reviewed chart. Patient has been discharged today and cleared by therapy team for return home w/family to assist. Patient is an DISPATCH SUPERVISOR and feels confident about her return home w/supportive spouse and college aged kids. No barriers to safe return home POD#1 and no SW needs identified by this MANAGING MEMBER. PRIMITIVO Sun Discharge Planning/Care Management CM Discharge Assessment Start: 01/28/20 14:28 Freq: Status: Discharge Protocol: Document 01/28/20 14:28 NATALIE (Rec: 01/28/20 14:30 NATALIE [id number]) Discharge Planning Assessment Assigned Fuel Verification Technician PRIMITIVO Silverio DPOA/Assigned Designee Name Toney Bragg, spouse Contact Information [phone] Advance Directives? No Advance Directives on File No History Provided By Patient Prior Living Arrangements House Household Members spouse,children Comment College aged children at home and available to assist Type of transporation used prior to Drives own vehicle admit Independent with ADL's Yes Is patient alert and oriented? Yes Barriers to Discharge No Discharge Plan Home Transportation Arrangement Family Referrals Initiated None needed
== END 2020-01-28 13:00 | disposition home or self-care (01) | DRG 472 ==
PROVIDERS: Admitting Provider Orthopaedic Surgery; PCP General Practice; Referring Provider Orthopaedic Surgery; Visit Provider Orthopaedic Surgery
PROC: 0RG10A0 Fusion of Cervical Vertebral Joint with Interbody Fusion Device, Anterior Approach, Anterior Column, Open Approach (ICD-10-PCS; principal; 2020-01-27 10:45)
DX: M48.02 Spinal stenosis, cervical region (principal); G99.2 Myelopathy in diseases classified elsewhere; M54.12 Radiculopathy, cervical region
CPT/HCPCS: 72040; 76000; 97116; 97161; 97165; 97535; C1776; J0131; J0690; J1100; J2405; J2704; J3010

== ENCOUNTER → 2021-05-16 14:21 | Outpatient (CLI) | payer OTHER, SELFPAY ==
[2020-01-27 13:54] VITALS: BMI 22.8
[2021-05-16 16:45] LABS: COVID19 -Nasal RAPID Negative (Negative)
== END ==
PROVIDERS: PCP General Practice; Visit Provider Nurse Practitioner Family
DX: Z20.822 Contact with and (suspected) exposure to COVID-19 (principal); J02.9 Acute pharyngitis, unspecified; R19.7 Diarrhea, unspecified; R50.9 Fever, unspecified
CPT/HCPCS: 87635